=== PATIENT | female | born 1955 | race Caucasian/White ===

== ENCOUNTER 2020-02-25 15:22 | Inpatient (IN) | payer MEDICARE, OTHER ==
[2020-02-25] MEDS ORDERED: NALOXONE 0.4 MG/ML 1 ML VIAL IV PRN (15:24)
--- NOTE | 2020-02-25 15:28 | ED ---
Abdominal Pain HPI - General Stated Complaint: Gall stones Time Seen by Provider: 02/25/20 15:24 - History of Present Illness Initial Comments: 64-year-old female with history of hypertension diabetes dyslipidemia presenting today for chief complaint of epigastric pain that radiates to her back, vomiting. Patient states that she woke up around 3 AM to pain in the epigastric region of her abdomen she states the wrapped around towards her back and causes 3 episodes of vomiting. Patient states that she continued to have nausea and pain and presented to [facility]. Patient states that she was then transferred here due to a stone or common bile duct. I did speak to the transferring physician he states the patient's laboratory studies without significant derangement she did have mild elevation of lactic acid however no leukocytosis no significant change in AST ALT or alkaline phosphatase. Lipase is within normal. And a cardiac evaluation was negative. Patient denied any chest pain or shortness of breath. CT did not show signs of acute cholecystitis or acute cholangitis however there was found to be stones in the common bile duct. Due to this finding patient was transferred to our facility for GI consultation. Dr. Dillon accepted transfer. Patient upon arrival states she is still experiencing mild pain, however nausea,vomiting is under control. - Related Data Home Medications Medication Instructions Recorded Confirmed Aspirin EC [Ecotrin Low Dose] 81 mg PO DAILY 02/25/20 02/25/20 Atorvastatin Calcium [Lipitor] 80 mg PO DAILY 02/25/20 02/25/20 Lisinopril [Prinivil] 10 mg PO DAILY 02/25/20 02/25/20 Multivitamins, Thera [Multivitamin 1 tab PO DAILY 02/25/20 02/25/20 (formulary)] Vit C/E/Zn/Coppr/Lutein/Zeaxan 1 cap PO DAILY 02/25/20 02/25/20 [Preservision Areds 2 Softgel] metFORMIN HCL 1,000 mg PO BID 02/25/20 02/25/20 Allergies Allergy/AdvReac Type Severity Reaction Status Date / Time Mushroom Allergy Rash/Hives Verified 02/25/20 15:51 Review of Systems ROS Statement: Those systems with pertinent positive or pertinent negative responses have been documented in the HPI. ROS Other: All systems not noted in ROS Statement are negative. General Exam - General Exam Comments Initial Comments: General: The patient is awake and alert, in no distress, and does not appear acutely ill. Eye: +3 mm pupils are equal, round and reactive to light, extra-ocular m ovements are intact. No nystagmus. There is normal conjunctiva bilaterally. No signs of icterus. Cardiovascular: There is a regular rate and rhythm. No murmur, rub or gallop is appreciated. Respiratory: Lungs are clear to auscultation, respirations are non-labored, breath sounds are equal. No wheezes, stridor, rales, or rhonchi. Gastrointestinal: Soft, non-distended, mild tenderness to palpation of the epigastric region of the abdomen without masses or organomegaly noted. There is no rebound or guarding present. Musculoskeletal: Normal ROM, no tenderness. Strength 5/5. Sensation intact. Radial pulses equal bilaterally 2+. Neurological: A&O x 3. CN II-XII intact grossly, There are no obvious motor or sensory deficits. Coordination appears grossly intact. Speech is normal. Skin: Skin is warm and dry and no rashes or lesions are noted. Psychiatric: Cooperative, appropriate mood & affect, normal judgment. Course Vital Signs 02/25/20 15:24 Temperature 99.2 F Pulse Rate 90 Respiratory 18 Rate Blood Pressure 140/62 O2 Sat by Pulse 99 Oximetry - Reevaluation(s) Reevaluation #1: 02/25/20 15:[address] Small who accepted patient he recommend we contact Dr. Lakhani to notify of consult and admit patient under his service Medical Decision Making - Medical Decision Making 64-year-old female presenting to the hospital today for stones in the common bile duct and presented to an outside facility for epigastric pain and vomiting. Nose and if Laboratory derangements. Patient's pain is persistent vomiting controlled. Dr. Small accepted admission, Dr. Lahkani accepted the consultation and is aware of patient. Patient will be transferred to the floor. - Lab Data WBC 8.20 RBC 5.62 hemoglobin 15.5 hematocrit 48.9% MCV 87.0 MCH 27.6 Platelets 271 Sodium 138 potassium 4.9 chloride 102 Glucose 218 BUN 12 serum creatinine 0.6mg/dL Bilirubin AST 30 ALT 38 Alkaline phosphatase 107 U/L Lactic acid 2.4 Lipase 132 Troponin <0.012 Disposition Clinical Impression: Common bile duct stone, Epigastric pain, Lactic acid acidosis Disposition: ADMITTED IP TO THIS HOSP Condition: Stable Is patient prescribed a controlled substance at d/c from ED?: No Referrals: Graham Hendricks MD [Primary Care Provider] - 1-2 days Time of Disposition: 15:54 Decision to Admit Reason: Admit from EC Decision Date: 02/25/20 Decision Time: 15:54
[2020-02-25] MEDS ORDERED: SODIUM CHLORIDE 0.9% 1,000 ML IV ONE (15:55)
[2020-02-25] MEDS ORDERED: ACETAMINOPHEN TAB 325 MG TAB PO PRN (18:22)
[2020-02-25] MEDS ORDERED: ALPRAZolam 0.25 MG TAB PO PRN (18:43)
[2020-02-25] MEDS ORDERED: TEMAZEPAM 15 MG CAP PO PRN (18:43)
[2020-02-25] MEDS ORDERED: HYDROmorphone 0.5 MG/0.5 ML SYRINGE IVP PRN (18:43)
[2020-02-25] MEDS ORDERED: HYDROcodone/APAP 5-325MG 1 EACH TAB PO PRN (18:43)
[2020-02-25 19:13] LABS: Basophils % (A) 0 %; Eosinophils % (A) 0 %; HCT 45.7 % (34.0-46.0); HGB 14.4 gm/dL (11.4-16.0); Lymphocytes % (A) 24 %; MCH 27.2 pg (25.0-35.0); MCHC 31.5 g/dL (31.0-37.0); MCV 86.4 fL (80.0-100.0); Mean Platelet Volume 7.9; Monocytes # (A) 0.4 k/uL (0-1.0); Monocytes % (A) 5 %; Neutrophils # (A) 5.7 k/uL (1.3-7.7); Neutrophils % (A) 69 %; Platelet Count 297 k/uL (150-450); RBC 5.29 m/uL (3.80-5.40); RDW 13.7 % (11.5-15.5); WBC 8.2 k/uL (3.8-10.6)
[2020-02-25 19:42] LABS: ALT 32 U/L (4-34); AST 26 U/L (14-36); African American GFR (CKD) >90 (>60 ml/min/1.73 sqM); Albumin 3.8 g/dL (3.5-5.0); Alkaline Phosphatase 83 U/L (38-126); Amylase 46 U/L (30-110); Anion Gap 6 mmol/L; Blood Urea Nitrogen 10 mg/dL (7-17); Calcium 8.9 mg/dL (8.4-10.2); Carbon Dioxide 29 mmol/L (22-30); Chloride 104 mmol/L (98-107); Glucose 123 mg/dL (74-99); Non-African American GFR(CKD) >90 (>60 ml/min/1.73 sqM); Potassium 4.5 mmol/L (3.5-5.1); Sodium 139 mmol/L (137-145); Total Bilirubin 0.3 mg/dL (0.2-1.3); Total Protein 6.6 g/dL (6.3-8.2)
[2020-02-25 20:27] LABS: Prothrombin Time 10.6 sec (9.0-12.0)
[2020-02-25] MEDS: PANTOPRAZOLE 40 MG/10 ML VIAL IVP SCH (20:29)
[2020-02-25] MEDS: SODIUM CHLORIDE 0.9% 1,000 ML IV SCH (20:29)
[2020-02-25] MEDS: INSULIN ASPART (NovoLOG) 100 UNIT/ML VIAL SQ SCH (20:32)
[2020-02-25 20:33] LABS: Glucose,Whole Blood 102 mg/dL (75-99)
--- NOTE | 2020-02-25 21:40 | HP ---
HISTORY AND PHYSICAL DATE OF SERVICE: 02/25/2020 CHIEF COMPLAINTS: Abdominal pain. HISTORY OF PRESENT ILLNESS: This 64-year-old woman with a past history of diabetes, hypertension, hyperlipidemia, being followed by Dr. Hendricks in the outpatient setting is complaining of severe abdominal pain. Patient was awakened this morning around 3 o'clock with severe abdominal pain which radiated to the back as well as some nausea. The patient went to [facility] in [place], where a CT scan of the abdomen showed 1 cm stone in the gallbladder and otherwise some stone in the common bile duct and the patient was transferred to [facility] for evaluation including ERCP and admitted for further evaluation and treatment. There is no history of fever, rigors or chills. No history of headache, loss of consciousness or seizures at this time. There is no history of chest pain or palpitations either. PAST MEDICAL HISTORY: Diabetes and hypertension, hyperlipidemia. MEDICATIONS: Home medications are: 1. Metformin, hydrochlorothiazide 1000 mg b.i.d. 2. Multivitamins. 3. Lisinopril 10 mg daily. 4. Lipitor 80 mg daily. 5. Ecotrin 81 mg p.o. daily. ALLERGIES: MUSHROOMS. FAMILY HISTORY: History of CAD, diabetes in the family. SOCIAL HISTORY: Previous history of smoking. No history of alcohol intake. REVIEW OF SYSTEMS: ENT: No diminished vision. No diminished hearing. CARDIOVASCULAR: No angina or palpitations. RESPIRATIONS: No cough, hemoptysis. GI as mentioned earlier. no dysuria. NERVOUS SYSTEM: No numbness or weakness. ALLERGY: No asthma or hayfever. MUSCULOSKELETAL as mentioned HEMATOLOGY/ONCOLOGY: No anemia. ENDOCRINE as mentioned earlier. CONSTITUTIONAL: As mentioned earlier. DERMATOLOGY: Negative. RHEUMATOLOGY: Negative. PSYCHIATRY: As mentioned earlier. PHYSICAL EXAMINATION: Alert and oriented x3. Pulse is 94. Blood pressure 124/87, respiration 18, temperature 98.3, pulse ox 97% on room air. HEENT is conjunctivae normal. Oral mucosa moist. NECK is no jugular venous distention. No carotid bruit. No lymph node enlargement. CARDIOVASCULAR system: S1, S2 muffled. RESPIRATORY: Breath sounds diminished in the bases. No rhonchi. No crackles. ABDOMEN: Soft, mild diffuse discomfort on palpation. No guarding. No rigidity. No mass palpable. Obese. LEGS: No edema. No swelling. NERVOUS SYSTEM: Higher functions as mentioned earlier. Moves all 4 limbs. No focal motor or sensory deficits. LYMPHATICS: No lymph nodes palpable in the neck, axillae, groin. JOINTS: No active deforming arthropathy. SKIN: No ulcer, rash or bleeding. LABS: Reviewed from [place]. ASSESSMENT: 1. Epigastric pain possible acute cholelithiasis and choledocholithiasis, rule out cholecystitis. 2. Diabetes mellitus type 2. 3. Hypertension. 4. Hyperlipidemia. 5. Obesity with body mass of 34.9. 6. History of nicotine dependence. 7. FULL CODE. RECOMMENDATIONS AND DISCUSSION: This 64-year-old woman who presented with multiple complex medical issues, we will monitor the patient closely, continue the current medications. Continue symptomatic treatment. We will initiate surgical and as well as gastroenterology evaluation. Otherwise, symptomatic treatment of the pain will be provided. Repeat labs will be obtained. DVT prophylaxis. Proton pump inhibitors. Overall prognosis extremely guarded because of multiple complex medical issues. Further recommendations to follow. A copy of this dictation being forwarded to Dr. Hendricks who is the primary physician. MMODL / IJN: [id number] /
[2020-02-26] MEDS: SODIUM CHLORIDE 0.9% 1,000 ML IV SCH ×2 (05:57→18:04)
[2020-02-26 06:35] LABS: Glucose,Whole Blood 132 mg/dL (75-99)
[2020-02-26] MEDS: INSULIN ASPART (NovoLOG) 100 UNIT/ML VIAL SQ SCH ×4 (06:44→20:52)
[2020-02-26 07:28] LABS: Basophils # (A) 0.1 k/uL (0-0.2); Basophils % (A) 1 %; Eosinophils # (A) 0.1 k/uL (0-0.7); Eosinophils % (A) 2 %; HCT 43.8 % (34.0-46.0); HGB 14.1 gm/dL (11.4-16.0); Lymphocytes # (A) 2.5 k/uL (1.0-4.8); Lymphocytes % (A) 38 %; MCHC 32.3 g/dL (31.0-37.0); MCV 86.7 fL (80.0-100.0); Mean Platelet Volume 7.2; Monocytes # (A) 0.4 k/uL (0-1.0); Monocytes % (A) 6 %; Neutrophils # (A) 3.5 k/uL (1.3-7.7); Neutrophils % (A) 53 %; Platelet Count 235 k/uL (150-450); RBC 5.05 m/uL (3.80-5.40); RDW 13.8 % (11.5-15.5); WBC 6.6 k/uL (3.8-10.6)
[2020-02-26] MEDS: PANTOPRAZOLE 40 MG/10 ML VIAL IVP SCH (08:07)
[2020-02-26] MEDS: LISINOPRIL 10 MG TAB PO SCH (08:11)
--- NOTE | 2020-02-26 10:08 | CONS ---
CONSULTATION DATE OF CONSULTATION: February 26, 2020. REASON FOR CONSULTATION: Gallstones, possible CBD stones. HISTORY OF PRESENT ILLNESS: The patient is a 64-year-old pleasant white female who was transferred from [facility] when she presented with acute onset of severe epigastric pain at 10:00 am yesterday. The pain was continuous for almost 4 hours, mostly in the midepigastric area radiating to the back. The pain continued to progressively get worse and she had a CT of the abdomen and pelvis done that showed gallbladder stones and a cystic duct stone and she was transferred to [facility] for possible ERCP. The patient was noted to have normal serum transaminases. Following her arrival to this hospital, she has been symptom free. She is doing well. This morning, has no abdominal pain. She has mild discomfort in the in her mid back area. No nausea, no vomiting. No fever, chills, night sweats. Never had these symptoms in the past. PAST MEDICAL HISTORY: Significant for diabetes mellitus, hypertension, hyperlipidemia. MEDICATIONS: At home, metformin, multivitamin, and lisinopril, Lipitor, Ecotrin. ALLERGIES: To MUSHROOMS. SOCIAL HISTORY: No smoking. No alcohol use. FAMILY HISTORY: Mother has diabetes mellitus. Father has coronary artery disease. REVIEW OF SYSTEMS: CARDIOPULMONARY: No chest pain, shortness of breath. GENITOURINARY: No dysuria or hematuria. MUSCULOSKELETAL unremarkable. SKIN unremarkable. ENDOCRINE unremarkable. PSYCHIATRIC unremarkable. NEUROLOGY unremarkable. ENT/vision unremarkable. CONSTITUTIONAL: No recent weight loss. No fever, chills, night sweats. PSYCHIATRIC unremarkable. PHYSICAL EXAMINATION: She appears comfortable. No apparent distress. VITAL SIGNS: Stable. Blood pressure is 144/71, pulse is 78, temperature 97.6. HEENT examination unremarkable. Conjunctivae pink. Sclerae anicteric. Oral cavity no lesions. NECK: No JVD or lymph node enlargement. CHEST was clear to auscultation. HEART: Regular rate and rhythm. ABDOMEN: Soft. Bowel sounds are positive. No organomegaly. EXTREMITIES: No pedal edema. SKIN no rashes. NEUROLOGIC: Alert and oriented x3. No focal deficits. LABS: Done yesterday, WBC 8.2, hemoglobin 14.4, platelets normal. Basic metabolic panel is within normal limits. ALT, AST, T-bilirubin and alkaline phosphatase are within normal limits. Today, CBC is completely within normal limits. CT of the abdomen and pelvis that was done at [facility]. The report reveals large gallstones. There was a stone in the cystic duct. The common bile duct was not dilated. No stones seen in the common bile duct as per the CT scan. IMPRESSION: This is a lady who presents to the hospital with acute onset of severe epigastric pain that started yesterday morning and went to the emergency room at [facility], had a CT of the abdomen and pelvis done that showed evidence of gallstones and a cystic duct stone, but there was no evidence of common bile duct stone. Her serum transaminases have been normal yesterday and repeat labs are normal today. At this time, there is no evidence of choledocholithiasis based on biochemical parameters or imaging studies. RECOMMENDATIONS: 1. Consult Dr. Mccollum for gallbladder surgery. 2. No need for any ERCP at the present time. Thank you for this consultation. MMODL / IJN: [id number] /
--- NOTE | 2020-02-26 10:52 | P.GSCN ---
History of Present Illness Consult date: 02/26/20 Reason for Consult: Abdominal pain History of present illness: This a 64-year-old female who was transferred from outside facility. Patient denton d complaints of severe abdominal pain. She is workup have found have gallstones. Past Medical History Past Medical History: Diabetes Mellitus, Hyperlipidemia, Hypertension History of Any Multi-Drug Resistant Organisms: None Reported Past Surgical History: Tonsillectomy Additional Past Surgical History / Comment(s): ovarian cyst removal, partial thyroidectomy Past Psychological History: No Psychological Hx Reported Smoking Status: Former smoker Past Alcohol Use History: None Reported Past Drug Use History: None Reported - Past Family History Mother Family Medical History: Coronary Artery Disease (CAD), Diabetes Mellitus Father Family Medical History: Chest Pain / Angina, Diabetes Mellitus Medications and Allergies Home Medications Medication Instructions Recorded Confirmed Type Aspirin EC [Ecotrin Low Dose] 81 mg PO DAILY 02/25/20 02/25/20 History Atorvastatin Calcium [Lipitor] 80 mg PO DAILY 02/25/20 02/25/20 History Lisinopril [Prinivil] 10 mg PO DAILY 02/25/20 02/25/20 History Multivitamins, Thera [Multivitamin 1 tab PO DAILY 02/25/20 02/25/20 History (formulary)] Vit C/E/Zn/Coppr/Lutein/Zeaxan 1 cap PO DAILY 02/25/20 02/25/20 History [Preservision Areds 2 Softgel] metFORMIN HCL 1,000 mg PO BID 02/25/20 02/25/20 History Allergies Allergy/AdvReac Type Severity Reaction Status Date / Time Mushroom Allergy Rash/Hives Verified 02/25/20 16:47 Surgical - Exam Vital Signs Temp Pulse Resp BP Pulse Ox 99.2 F 90 18 140/62 99 02/25/20 15:24 02/25/20 15:24 02/25/20 15:24 02/25/20 15:24 02/25/20 15:24 - General well developed, well nourished, no distress - Eyes PERRL - ENT normal pinna - Neck no masses - Respiratory normal expansion - Cardiovascular Rhythm: regular - Abdomen Abdomen: soft, non tender Results - Labs 02/26/20 07:15 02/25/20 16:35 Abnormal Lab Results - Last 24 Hours (Table) 02/25/20 02/25/20 02/26/20 Range/Units 16:35 20:32 06:34 Glucose 123 H (74-99) mg/dL POC Glucose (mg/dL) 102 H 132 H (75-99) mg/dL Diabetes panel 02/25/20 Range/Units 16:35 Sodium 139 (137-145) mmol/L Potassium 4.5 (3.5-5.1) mmol/L Chloride 104 (98-107) mmol/L Carbon Dioxide 29 (22-30) mmol/L BUN 10 (7-17) mg/dL Creatinine 0.62 (0.52-1.04) mg/dL Glucose 123 H (74-99) mg/dL Calcium 8.9 (8.4-10.2) mg/dL AST 26 (14-36) U/L ALT 32 (4-34) U/L Alkaline Phosphatase 83 (38-126) U/L Total Protein 6.6 (6.3-8.2) g/dL Albumin 3.8 (3.5-5.0) g/dL Calcium panel 02/25/20 Range/Units 16:35 Calcium 8.9 (8.4-10.2) mg/dL Albumin 3.8 (3.5-5.0) g/dL Pituitary panel 02/25/20 Range/Units 16:35 Sodium 139 (137-145) mmol/L Potassium 4.5 (3.5-5.1) mmol/L Chloride 104 (98-107) mmol/L Carbon Dioxide 29 (22-30) mmol/L BUN 10 (7-17) mg/dL Creatinine 0.62 (0.52-1.04) mg/dL Glucose 123 H (74-99) mg/dL Calcium 8.9 (8.4-10.2) mg/dL Adrenal panel 02/25/20 Range/Units 16:35 Sodium 139 (137-145) mmol/L Potassium 4.5 (3.5-5.1) mmol/L Chloride 104 (98-107) mmol/L Carbon Dioxide 29 (22-30) mmol/L BUN 10 (7-17) mg/dL Creatinine 0.62 (0.52-1.04) mg/dL Glucose 123 H (74-99) mg/dL Calcium 8.9 (8.4-10.2) mg/dL Total Bilirubin 0.3 (0.2-1.3) mg/dL AST 26 (14-36) U/L ALT 32 (4-34) U/L Alkaline Phosphatase 83 (38-126) U/L Total Protein 6.6 (6.3-8.2) g/dL Albumin 3.8 (3.5-5.0) g/dL Assessment and Plan Assessment: Cholelithiasis, cholecystitis. Patient undergo laparoscopic ostectomy in the a.m.
[2020-02-26 11:57] LABS: Glucose,Whole Blood 149 mg/dL (75-99)
[2020-02-26 12:44] LABS: Appearance,Urine Cloudy (Clear); Bacteria,Urine Rare /hpf; Bilirubin,Urine Negative (Negative); Blood,Urine Negative (Negative); Color,Urine Yellow; Glucose,Urine (UA) Negative (Negative); Ketones,Urine Negative (Negative); Leukocyte Esterase,Urine Large (Negative); Mucus,Urine Moderate /hpf; Nitrite,Urine Negative (Negative); PH, Urine 5.5 (5.0-8.0); Protein,Urine Negative (Negative); RBC,Urine 4 /hpf (0-5); Specific Gravity,Urine 1.015 (1.001-1.035); Squamous Epithelial Cell,Urine 4 /hpf (0-4); Urobilinogen,Urine <2.0 mg/dL (<2.0); WBC,Urine 41 /hpf (0-5)
[2020-02-26 17:34] LABS: Glucose,Whole Blood 102 mg/dL (75-99)
--- NOTE | 2020-02-26 18:29 | PN ---
PROGRESS NOTE DATE OF SERVICE: 02/26/2020 This 64-year-old woman who was admitted with epigastric pain and possible acute cholelithiasis and cholecystitis is being closely monitored. Dr. Mccollum is planning laparoscopic cholecystectomy tomorrow. There is no evidence of CBD stone and so, hence, ERCP is not considered per Dr. Lakhani. No chest pain. No palpitations. No fever. PHYSICAL EXAMINATION: Alert and oriented x3. Pulse 77, blood pressure 145/65, respiration 18, temperature 97.8, pulse ox 97% on room air. HEENT: Conjunctivae normal. Oral mucosa moist. NECK: No jugular venous distention. No lymph node enlargement. CARDIOVASCULAR: Heart sounds are muffled, especially in the bases. RESPIRATORY: Diminished breath sounds at the bases. A few scattered rhonchi and crackles. ABDOMEN: Soft, nontender. LEGS: No edema, no swelling. NERVOUS SYSTEM: No focal deficit. LABS: CBC within normal. UA shows 41 WBCs. ASSESSMENT: 1. Epigastric pain, possible acute cholelithiasis and cholecystitis. No evidence of choledocholithiasis. 2. Acute urinary tract infection, present on admission possibly. 3. Diabetes mellitus type 2. 4. Hypertension. 5. Hyperlipidemia. 6. Obesity with body mass index of 34.9. 7. History of nicotine dependence. 8. FULL CODE. RECOMMENDATIONS AND DISCUSSION: Recommend to continue current management, continue symptomatic treatment. I recommend a short course of antibiotics. Otherwise, closely follow with Dr. Mccollum and further recommendations to follow. See orders for details this patient. MMODL / IJN: [id number] /
[2020-02-26] MEDS: HEPARIN SODIUM,PORCINE 5,000 UNIT/ML 1 ML VIAL SQ SCH (20:17)
[2020-02-26 20:51] LABS: Glucose,Whole Blood 115 mg/dL (75-99)
[2020-02-27 06:40] LABS: Glucose,Whole Blood 125 mg/dL (75-99)
[2020-02-27] MEDS: INSULIN ASPART (NovoLOG) 100 UNIT/ML VIAL SQ SCH ×4 (06:40→20:55)
[2020-02-27] MEDS: SODIUM CHLORIDE 0.9% 1,000 ML IV SCH ×2 (06:44→14:20)
[2020-02-27 07:02] LABS: Basophils # (A) 0.1 k/uL (0-0.2); Basophils % (A) 1 %; Eosinophils # (A) 0.2 k/uL (0-0.7); Eosinophils % (A) 2 %; HCT 45.1 % (34.0-46.0); HGB 14.4 gm/dL (11.4-16.0); Lymphocytes % (A) 45 %; MCH 27.5 pg (25.0-35.0); MCHC 31.9 g/dL (31.0-37.0); MCV 86.2 fL (80.0-100.0); Mean Platelet Volume 7.1; Monocytes # (A) 0.3 k/uL (0-1.0); Monocytes % (A) 4 %; Neutrophils # (A) 3.1 k/uL (1.3-7.7); Neutrophils % (A) 46 %; Platelet Count 288 k/uL (150-450); RBC 5.23 m/uL (3.80-5.40); RDW 13.7 % (11.5-15.5); WBC 6.6 k/uL (3.8-10.6)
[2020-02-27] MEDS ORDERED: HEPARIN SODIUM,PORCINE 5,000 UNIT/ML 1 ML VIAL SQ ONE (08:41)
[2020-02-27] MEDS ORDERED: SODIUM CHLORIDE 0.9% 100 ML with ceFAZolin 2,000 MG IV ONE ×2 (08:43)
[2020-02-27] MEDS ORDERED: LIDOCAINE 1% INJ 10MG/ML (20 ML MDV) ONE (08:43)
[2020-02-27] MEDS ORDERED: SUCCINYLCHOLINE CHLORIDE 100 MG/5 ML SYR IV ONE (08:43)
[2020-02-27] MEDS ORDERED: ePHEDrine SULFATE/0.9% NACL/PF 50 MG/5 ML SYRINGE IV ONE (08:43)
[2020-02-27] MEDS ORDERED: ONDANSETRON 4 MG/2 ML VIAL ONE (08:43)
[2020-02-27] MEDS ORDERED: fentaNYL (PF) 50 MCG/ML 2 ML AMP ONE (08:43)
[2020-02-27] MEDS ORDERED: KETOROLAC 30 MG/ML 1 ML VIAL ONE (08:43)
[2020-02-27] MEDS ORDERED: NEOSTIGMINE 1 MG/ML 10 ML VIAL ONE (08:43)
[2020-02-27] MEDS ORDERED: ROCURONIUM BROMIDE 10 MG/ML 5 ML VIAL IV ONE (08:43)
[2020-02-27] MEDS ORDERED: PROPOFOL 10 MG/ML 20 ML VIAL IV ONE (08:43)
[2020-02-27] MEDS ORDERED: IV FLUID CONTINUATION 1,000 ML IV ONE (08:43)
[2020-02-27] MEDS ORDERED: GLYCOPYRROLATE 0.2 MG/ML 2 ML VIAL ONE (08:43)
[2020-02-27] MEDS ORDERED: MIDAZOLAM 2 MG/2 ML VIAL ONE (08:43)
[2020-02-27] MEDS ORDERED: DEXAMETHASONE SOD PHOS (MDV) 100 MG/10 ML VIAL ONE (08:43)
[2020-02-27 08:44] LABS: Glucose,Whole Blood 127 mg/dL (75-99)
[2020-02-27] MEDS ORDERED: BUPIVACAIN-EPI 0.25%-1:200,000 30 ML VIAL SQ ONE (09:03)
--- NOTE | 2020-02-27 09:24 | P.OP ---
Date of Procedure: 02/27/20 Preoperative Diagnosis: Cholecystitis Postoperative Diagnosis: Cholecystitis Procedure(s) Performed: Laparoscopic cholecystectomy Anesthesia: LUZ Surgeon: Puma Mccollum Estimated Blood Loss (ml): 5 Pathology: other (Gallbladder) Condition: stable Disposition: PACU Description of Procedure: The patient was placed on the operating table. The patient received a general endotracheal tube anesthesia. The patients abdomen was prepped and draped in the usual sterile fashion. Through an infraumbilical stab incision, the fascia of the anterior abdominal wall was grasped with a pair of Kochers and then the Veress needle was placed in the peritoneal cavity. Position of the Veress needle was confirmed with positive drop test. The abdomen was then insufflated. After adequate insufflation, the 10 mm trocar was placed in the peritoneal cavity. Following this the laparoscope was placed in the peritoneal cavity. The patient was placed in the head-up, right side up position and then a 5 mm trocar was placed in the right lateral and right subcostal position under direct visualization. A 8 mm trocar was placed in the epigastric position. The gallbladder was grasped in the fundus and infundibulum. Traction on the gallbladder was placed in the lateral and the cephalad positions. The triangle of Calot was visualized.. The cystic duct was bluntly dissected until the union of the cystic duct and common bile duct was seen. A critical view of safety was achieved. The cystic duct was then divided and sealed with the Harmonic scissors. A PDS Endoloop was then placed throughout the cystic duct stump. The cystic artery divided and sealed with the Harmonic scissors. The gallbladder was then removed from the liver bed using Harmonic scissors. The gallbladder was then extracted through the epigastric port site. Operative field was checked for any bleeding spots and Harmonic scissors was used to coagulate the liver bed. The abdomen was irrigated. The trocars were removed. The skin was closed using interrupted 3-0 Vicryl suture. Dermabond dressing were applied. The patient tolerated the procedure well.
[2020-02-27] MEDS: HEPARIN SODIUM,PORCINE 5,000 UNIT/ML 1 ML VIAL SQ SCH ×2 (10:46→20:56)
[2020-02-27] MEDS: PANTOPRAZOLE 40 MG/10 ML VIAL IVP SCH (11:13)
[2020-02-27] MEDS: LISINOPRIL 10 MG TAB PO SCH (11:13)
[2020-02-27 12:30] LABS: Glucose,Whole Blood 194 mg/dL (75-99)
[2020-02-27 17:28] LABS: Glucose,Whole Blood 187 mg/dL (75-99)
--- NOTE | 2020-02-27 18:42 | PN ---
PROGRESS NOTE DATE OF SERVICE: 02/27/2020 This 64-year-old woman who was admitted with epigastric pain, possible acute cholelithiasis, cholecystitis, underwent laparoscopic cholecystectomy today. No chest pain. No palpitations. No fever. PHYSICAL EXAMINATION: Alert and oriented x3. Pulse is 106, blood pressure 147/60, respirations 16, temperature is normal, pulse ox 98% on room air. HEENT: Conjunctivae normal. Oral mucosa moist. NECK: No jugular venous distention. No lymph node enlargement. CARDIOVASCULAR: S1, S2. RESPIRATORY: Diminished breath sounds at the bases. Bilateral scattered rhonchi and crackles. ABDOMEN: Soft, status post surgery. LEGS: No edema, no swelling. NERVOUS SYSTEM: No focal deficits. LABS: Accu-Cheks 125, 127. UA noted. ASSESSMENT: 1. Abdominal pain with possibly cholelithiasis and cholecystitis status post laparoscopic cholecystectomy. No evidence of choledocholithiasis. 2. Acute urinary tract infection, present on admission, on empiric antibiotics. 3. Diabetes mellitus type 2. 4. Hypertension. 5. Hyperlipidemia. 6. Obesity with body mass index of 34.9. 7. History of nicotine dependence. 8. FULL CODE. RECOMMENDATIONS AND DISCUSSION: Recommend to continue current medications, continue current management and symptomatic treatment. Continue the antibiotics. Closely follow with Surgery. Otherwise, guarded prognosis. Further recommendations to follow. See orders for details. Continue with the DVT prophylaxis. MMODL / IJN: [id number] /
[2020-02-27 20:48] LABS: Glucose,Whole Blood 158 mg/dL (75-99)
[2020-02-27] MEDS: ONDANSETRON 4 MG/2 ML VIAL IVP PRN (22:46)
[2020-02-28 06:32] LABS: Glucose,Whole Blood 150 mg/dL (75-99)
[2020-02-28] MEDS: INSULIN ASPART (NovoLOG) 100 UNIT/ML VIAL SQ SCH ×2 (06:37→13:07)
[2020-02-28 08:00] LABS: Basophils % (A) 0 %; Eosinophils % (A) 0 %; HCT 41.5 % (34.0-46.0); Lymphocytes # (A) 1.9 k/uL (1.0-4.8); Lymphocytes % (A) 20 %; MCH 28.9 pg (25.0-35.0); MCHC 33.7 g/dL (31.0-37.0); MCV 85.8 fL (80.0-100.0); Mean Platelet Volume 7.1; Monocytes # (A) 0.7 k/uL (0-1.0); Monocytes % (A) 7 %; Neutrophils # (A) 6.8 k/uL (1.3-7.7); Neutrophils % (A) 71 %; Platelet Count 239 k/uL (150-450); RBC 4.84 m/uL (3.80-5.40); RDW 13.6 % (11.5-15.5); WBC 9.6 k/uL (3.8-10.6)
[2020-02-28] MEDS: PANTOPRAZOLE 40 MG/10 ML VIAL IVP SCH (08:52)
[2020-02-28] MEDS: LISINOPRIL 10 MG TAB PO SCH (08:52)
[2020-02-28] MEDS: HEPARIN SODIUM,PORCINE 5,000 UNIT/ML 1 ML VIAL SQ SCH (08:53)
[2020-02-28] MEDS: ONDANSETRON 4 MG/2 ML VIAL IVP PRN (09:00)
[2020-02-28 09:16] VITALS: RESP 16
--- NOTE | 2020-02-28 12:09 | P.PN ---
Subjective Progress Note Date: 02/28/20 CHIEF COMPLAINT: abdominal pain HISTORY OF PRESENT ILLNESS: Patient is s/p laparoscopic cholecystectomy with Dr. Mccollum. Patient is doing well this morning. Abdominal pain tolerable. Tolerating diet. She does report some nausea. PHYSICAL EXAM: VITAL SIGNS: Reviewed. GENERAL: Well-developed in no acute distress. HEENT: No sclera icterus. Extraocular movements grossly intact. Moist buccal mucosa. Head is atraumatic, normocephalic. ABDOMEN: Soft. Nondistended. Appropriate surgical tenderness. Incisions clean dry intact. NEUROLOGIC: Alert and oriented. Cranial nerves II through XII grossly intact. ASSESSMENT: 1. Cholecystitis PLAN: -Diet as tolerated -Pain control -Stable for DC home today from a surgical standpoint. Patient to follow up in [address] Mccollum Nurse practitioner note has been reviewed by physician. Signing provider agrees with the documented findings, assessment, and plan of care. Objective - Vital Signs Vital signs: Vital Signs Temp 98.7 F 02/28/20 08:45 Pulse 82 02/28/20 08:45 Resp 16 02/28/20 08:45 BP 155/68 02/28/20 08:45 Pulse Ox 95 02/28/20 08:45 Intake & Output 02/27/20 02/28/20 02/28/20 18:59 06:59 18:59 Intake Total 650 Output Total 5 Balance 645 Intake: IV 650 Output: Estimated Blood Loss 5 Other: # Voids 1 3 - Labs CBC & Chem 7: 02/28/20 07:25 02/25/20 16:35 Labs: Abnormal Lab Results - Last 24 Hours (Table) 02/27/20 02/27/20 02/27/20 Range/Units 12:27 17:25 20:44 POC Glucose (mg/dL) 194 H 187 H 158 H (75-99) mg/dL 02/28/20 Range/Units 06:29 POC Glucose (mg/dL) 150 H (75-99) mg/dL
[2020-02-28 13:04] LABS: Glucose,Whole Blood 138 mg/dL (75-99)
[2020-02-28 13:14] VITALS: BP 151/77; PULSE 77; TEMP 98.2
--- NOTE | 2020-02-29 01:58 | DS ---
DISCHARGE SUMMARY DATE OF SERVICE: 02/28/2020. FINAL DIAGNOSES: 1. Abdominal pain possibly cholelithiasis and cholecystitis, status post laparoscopic cholecystectomy. No evidence of choledocholithiasis. 2. Acute urinary tract infection present on admission, on empiric antibiotics, improved. 3. Diabetes mellitus type 2. 4. Hypertension. 5. Hyperlipidemia. 6. Obesity with body mass index of 34.9. 7. History of nicotine dependence. 8. FULL CODE. DISCHARGE DISPOSITION: Patient will be discharged in stable condition with guarded prognosis. HISTORY OF PRESENT ILLNESS: This 64-year-old woman admitted with cholecystitis and cholelithiasis, was evaluated by Gastroenterology. There was no evidence of choledocholithiasis. Dr. Mccollum performed the laparoscopic cholecystectomy, which the patient tolerated well. Surgery saw the patient, cleared the patient for discharge. Patient also had UTI treated with antibiotics and the patient will be discharged in stable condition with guarded prognosis with the following advice. On exam, vitals are stable. CARDIOVASCULAR: S1, S2, muffled. ABDOMEN: Soft. NERVOUS SYSTEM: No focal deficits. I recommend the patient to follow up with primary physician, Dr. Hendricks and as well as Dr. Mccollum in the outpatient setting. DISCHARGE ADVICE: 1. Diet is cardiac. 2. Activity limited until followup. 3. Follow up with Dr. Hendricks in 2 to 3 days. 4. Follow up with Dr. Mccollum as recommended. MEDICATIONS: 1. Ecotrin 81 mg daily. 2. Lipitor 80 mg daily. 3. Metformin 1000 mg p.o. b.i.d. 4. Multivitamins 1 p.o. daily. 5. Vitamin C, zinc 1 p.o. daily. 6. Prinivil 10 mg p.o. daily. 7. Ceftin 500 mg p.o. b.i.d. 8. [place] 5 mg q.6 p.r.n. 9. Zofran 4 mg q.8 p.r.n. 10.Protonix 40 mg p.o. daily. MMODL / IJN: [id number] /
== END 2020-02-28 15:00 | disposition home or self-care (01) | DRG 418 ==
LOC: EC 15:22 → 6PED 16:06 → OBSVTOIN 02-28 08:54
PROVIDERS: ADMIT Hospitalist; ATTEND Hospitalist
PROC: 0FT44ZZ Resection of Gallbladder, Percutaneous Endoscopic Approach (ICD-10-PCS; principal; 2020-02-27 08:30)
DX: K80.00 Calculus of gallbladder with acute cholecystitis without obstruction (principal); E87.2 Acidosis; N39.0 Urinary tract infection, site not specified; E11.9 Type 2 diabetes mellitus without complications; E66.9 Obesity, unspecified; E78.5 Hyperlipidemia, unspecified; I10 Essential (primary) hypertension; Z11.59 Encounter for screening for other viral diseases; Z68.34 Body mass index [BMI] 34.0-34.9, adult; Z87.891 Personal history of nicotine dependence; Z79.82 Long term (current) use of aspirin; Z79.84 Long term (current) use of oral hypoglycemic drugs; Z79.899 Other long term (current) drug therapy; Z91.018 Allergy to other foods; Z82.49 Family history of ischemic heart disease and other diseases of the circulatory system; Z83.3 Family history of diabetes mellitus
CPT/HCPCS: 80053; 81001; 82150; 83605; 83690; 85025; 85610; 87635; 88304; 99284